=== PATIENT | female | born 1935 | race Caucasian/White ===

== ENCOUNTER 2017-11-16 17:43 | Emergency (ER) | payer OTHER ==
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
[2017-11-16 18:52] VITALS: BP 165/78; PULSE 75; RESP 19; TEMP 98.2; O2SAT 96
== END 2017-11-16 18:59 | disposition home or self-care (01) ==
LOC: EDUNIT#
DX: S20.219A Contusion of unspecified front wall of thorax, initial encounter (principal); I10 Essential (primary) hypertension; E11.9 Type 2 diabetes mellitus without complications; V49.40XA Driver injured in collision with unspecified motor vehicles in traffic accident, initial encounter; Y92.410 Unspecified street and highway as the place of occurrence of the external cause; Y99.8 Other external cause status; Y93.89 Activity, other specified